=== PATIENT | male | born 1940 | race Caucasian/White ===

== ENCOUNTER 2016-06-23 21:21 | Emergency (ER) | payer OTHER, MEDICARE ==
[~2016-06-23] VITALS: Ht 190.5 cm; Wt 122.5 kg
[~2016-06-23 21:21] MED LIST: ACAR50TA5 PO; EZET1TAB29 PO; FORTAMET; INSU100V9 SQ; LANS30CA10 PO; LOSA1TAB15 PO; MONT10TA22 PO; REPA2TAB7 PO
[2016-06-23 21:31] VITALS: BP 172/88; PULSE 63; RESP 20; TEMP 97.2; O2SAT 95
[2016-06-23] MEDS ORDERED: LIDOCAINE/EPI 1% 1:100000 20 ML VIAL IJ ONE (22:15)
[2016-06-23 22:30] VITALS: BP 150/89; PULSE 76; RESP 20; TEMP 98.1; O2SAT 95
== END 2016-06-23 22:30 | disposition home or self-care (01) ==
LOC: SED 21:21
DX: L76.22 Postprocedural hemorrhage of skin and subcutaneous tissue following other procedure (principal); K21.9 Gastro-esophageal reflux disease without esophagitis; I10 Essential (primary) hypertension; E11.9 Type 2 diabetes mellitus without complications; Z96.653 Presence of artificial knee joint, bilateral
CPT/HCPCS: 99283